=== PATIENT | female | born 1965 | race Caucasian/White ===

== ENCOUNTER 2020-03-04 10:29 | Emergency (ER) | payer MEDICAID ==
[~2020-03-04] VITALS: Ht 147.3 cm; Wt 63.5 kg
[2020-03-04 10:35] VITALS: BP 149/87
[2020-03-04 11:30] VITALS: BP 152/80
== END 2020-03-04 11:30 | disposition home or self-care (01) ==
LOC: MED 10:29
DX: H61.22 Impacted cerumen, left ear (principal)
CPT/HCPCS: 99282